=== PATIENT | male | born 1985 | race Caucasian/White ===

== ENCOUNTER 2017-06-27 13:54 | Inpatient (IN) | payer MEDICAID, OTHER ==
[~2017-06-27] VITALS: Ht 170.2 cm; Wt 85.4 kg
[~2017-06-27 13:54] MED LIST: AMOX875T20 PO; LORTA5
[2017-06-27 13:55] VITALS: BP 149/83; PULSE 98; RESP 16; TEMP 98.4; O2SAT 98
--- NOTE | 2017-06-27 14:42 | PD ---
HPI Chief Complaint: Skin Problem Time Seen by Provider: 14:33 Travel History International Travel<30 days: No Contact w/Intl Traveler<30days: No Traveled to known affect area: No History of Present Illness HPI 32 YO M presents to the ED for evaluation of bleeding, pain and swelling from wound of the left lower extremity. The patient states that he sustained the wound approximately 10 days ago. He was using a edger that shot a rock into his leg. He was seen at [facility]. At that time laceration was repaired, tetanus immunization was updated and the patient was provided prescription for Keflex. He endorses compliance with the medications but states that his symptoms have continued to worsen. Today he complains of pain, swelling, intermittent bleeding, fevers and nausea. He states he is otherwise healthy. He ate a cheeseburger and chicken sandwich ~2pm today. PFSH Past Medical History Blood Disorders: No Cancer: No Cardiovascular Problems: No Endocrine: No Gastrointestinal Disorders: No Genitourinary: No Immune Disorder: No Implanted Vascular Access Dvce: No Musculoskeletal: No Neurologic: No Psychiatric: No Reproductive: No Respiratory: No Past Surgical History Abdominal Surgery: No Cardiac Surgery: No Ear Surgery: No Endocrine Surgery: No Eye Surgery: No Genitourinary Surgery: No Gynecologic Surgery: No Neurologic Surgery: No Oral Surgery: No Pacemaker: No Thoracic Surgery: No Other Surgery: Yes Social History Alcohol Use: Yes (occ) Tobacco Use: Yes (1 ppd) Substance Use: Yes (OCC. MARAJUANA USE) Allergies-Medications (Allergen,Severity, Reaction): Coded Allergies: tramadol (Unverified Allergy, Mild, Rash, 06/27/17) Reported Meds & Prescriptions Reported Meds & Active Scripts Active Reported Amoxicillin/Clavulanate P (Amoxicillin/Clavulanate Potassium) 875 Mg Tab 875 Mg PO BID 10 Days Lortab 5/325 Tab (Hydrocodone-Acetaminophen) 1 Tab Tab 1 Tab .XX Q4-6HPRN Review of Systems Except as stated in HPI: all other systems reviewed are Neg Physical Exam Narrative GENERAL: Well-nourished, well-developed white male in no acute distress. SKIN: Focused skin assessment warm/dry. There is a 2.5 cm laceration on the lateral aspect of the left lower leg. There are [address] and a pale red fluid is emanating from the wound. There is erythema, edema of the entire left lower leg, including an old ecchymosis over the lateral aspect of the left foot. HEAD: Normocephalic. EYES: No scleral icterus. No injection or drainage. NECK: Supple, trachea midline. No JVD or lymphadenopathy. CARDIOVASCULAR: Regular rate and rhythm without murmurs, gallops, or rubs. RESPIRATORY: Breath sounds clear and equal bilaterally. No accessory muscle use. GASTROINTESTINAL: Abdomen soft, non-tender, nondistended. Active bowel sounds. MUSCULOSKELETAL: No cyanosis, or edema. FOCUSED LEFT LOWER EXTREMITY EXAM: 2+ DP pulse. Patient retains full, active range of motion of the joints of the extremity. Compartments are soft. Homans sign positive. Neurovascularly intact. BACK: Nontender without obvious deformity. No CVA tenderness. Data Data Last Documented VS Vital Signs Date Time Temp Pulse Resp B/P (MAP) Pulse Ox O2 Delivery O2 Flow Rate FiO2 06/27/17 14:37 80 18 06/27/17 13:55 98.4 149/83 (105) 98 Orders Orders Basic Metabolic Panel (Bmp) (06/27/17 14:47) Complete Blood Count With Diff (06/27/17 14:47) Blood Culture (06/27/17 14:47) Iv Access Insert/Monitor (06/27/17 14:47) Ketorolac Inj (Toradol Inj) (06/27/17 15:00) Sodium Chloride 0.9% Flush (Ns Flush) (06/27/17 15:00) Clindamycin Inj (Cleocin Inj) (06/27/17 15:00) Lactic Acid Sepsis Protocol (06/27/17 15:04) Sodium Chlorid 0.9% 500 Ml Inj (Ns 500 M (06/27/17 15:15) Acetamin-Hydrocod 325-10 Mg ([place] 10-32 (06/27/17 15:15) Ct Tib/Fib W Iv Contrast (06/27/17 ) Iohexol 350 Inj (Omnipaque 350 Inj) (06/27/17 15:28) Vancomycin Inj (Vancomycin Inj) (06/27/17 15:45) Piperacil-Tazo 4.5 Gm Premix (Zosyn 4.5 (06/27/17 15:45) Admit Order (Ed Use Only) (06/27/17 16:53) Consult Orthopedic (06/27/17 ) Invasive Rad Dept Consult (06/27/17 ) Labs Laboratory Tests Test 06/27/17 14:58 06/27/17 15:08 White Blood Count 12.3 TH/MM3 Red Blood Count 4.09 MIL/MM3 Hemoglobin 12.3 GM/DL Hematocrit 36.3 % Mean Corpuscular Volume 88.7 FL Mean Corpuscular Hemoglobin 30.1 PG Mean Corpuscular Hemoglobin Concent 34.0 % Red Cell Distribution Width 13.6 % Platelet Count 354 TH/MM3 Mean Platelet Volume 8.9 FL Neutrophils (%) (Auto) 77.5 % Lymphocytes (%) (Auto) 13.4 % Monocytes (%) (Auto) 8.2 % Eosinophils (%) (Auto) 0.6 % Basophils (%) (Auto) 0.3 % Neutrophils # (Auto) 9.6 TH/MM3 Lymphocytes # (Auto) 1.7 TH/MM3 Monocytes # (Auto) 1.0 TH/MM3 Eosinophils # (Auto) 0.1 TH/MM3 Basophils # (Auto) 0.0 TH/MM3 CBC Comment DIFF FINAL Differential Comment Blood Urea Nitrogen 13 MG/DL Creatinine 0.94 MG/DL Random Glucose 98 MG/DL Calcium Level 9.1 MG/DL Sodium Level 137 MEQ/L Potassium Level 3.9 MEQ/L Chloride Level 101 MEQ/L Carbon Dioxide Level 30.6 MEQ/L Anion Gap 5 MEQ/L Estimat Glomerular Filtration Rate 93 ML/MIN Lactic Acid Level 1.2 mmol/L MDM Medical Decision Making Medical Screen Exam Complete: Yes Emergency Medical Condition: Yes Differential Diagnosis Hematoma versus abscess versus compartment syndrome versus other Narrative Course 32 YO M presents to the ED for evaluation of bleeding, pain and swelling from wound of the left lower extremity sustained ~ 10 days ago. He was using an edger that shot a rock into his leg. He was seen at [facility] for laceration repair, tetanus immunization. He endorses compliance with Keflex prescribed at that time. Today he complains of pain, swelling, intermittent bleeding, fevers and nausea. He states he is otherwise healthy. He ate a cheeseburger and chicken sandwich ~2pm today. The patient is afebrile on presentation. Physical exam reveals a 2 cm laceration on the lateral aspect of the left lower extremity. There is surrounding warmth, erythema, edema and tenderness to palpation to just below the knee and to the ankle area. Compartments are soft. IV was established. Patient was administered 1 L normal saline, 30 mg Toradol and 900 mg clindamycin IV. CBC: WBC 12.3 with left shift. Hemoglobin 12.3. Lactic: 1.2 CMP: Unremarkable. CT tib-fib: large fluid collection in the gastroc compartment per my read, formal read pending. IV vancomycin and Zosyn was administered. Patient was administered 10 mg Lortab by mouth. Call placed to the on-call orthopedist Dr. Nolasco. He'd like IR to drain the area, plans to take the patient to the OR tomorrow. I spoke with Dr. Mane, IR, who recommends opening the wound and draining the area in the ED. Please see my procedure note for those details. Patient be admitted to the medicine service. Dr. Warren spoke with the residents who agree to accept the patient under Dr. Leahy. Please see medicine and ortho notes for disposition. Procedures Procedure Narrative INCISION AND DRAINAGE OF ABSCESS: The sutures were removed. Cultures were obtained. The wound was irrigated with approximately 500 mL's of normal saline. I&D was limited secondary to pain. Sterile dressing applied. Patient tolerated the procedure well. Elsa Stringer Jun 27, 2017 14:42
[2017-06-27] MEDS ORDERED: CLINDAMYCIN INJ 900 MG in SODIUM CHLORIDE 0.9% INJ 100 ML IV ONE (15:00)
[2017-06-27] MEDS ORDERED: SODIUM CHLORIDE 0.9% FLUSH 10 ML FLUSH IVF PRN (15:00)
[2017-06-27] MEDS ORDERED: KETOROLAC TROMETHAMINE 30 MG/ML (IVP) VIAL IVP ONE (15:00)
[2017-06-27 15:15] LABS: AUTOMATED NEUTROPHIL # 9.6 TH/MM3 (1.8-7.7); BASOPHIL % 0.3 % (0.0-2.0); EOSINOPHIL # 0.1 TH/MM3 (0-0.4); EOSINOPHIL % 0.6 % (0.0-4.0); HEMATOCRIT 36.3 % (39.0-51.0); HEMO FLAGS DIFF FINAL; LYMPH % 13.4 % (9.0-44.0); LYMPHOCYTE # 1.7 TH/MM3 (1.0-4.8); MEAN CELL VOLUME 88.7 FL (80.0-100.0); MEAN CORPUSCULAR HEMOGLOBIN 30.1 PG (27.0-34.0); MONO % 8.2 % (0.0-8.0); NEUT % 77.5 % (16.0-70.0); PLATELET COUNT 354 TH/MM3 (150-450); RED BLOOD COUNT 4.09 MIL/MM3 (4.50-5.90); RED CELL DISTRIBUTION WIDTH 13.6 % (11.6-17.2); WHITE BLOOD COUNT 12.3 TH/MM3 (4.0-11.0)
[2017-06-27] MEDS ORDERED: SODIUM CHLORID 0.9% 500 ML INJ 500 ML IV ONE (15:15)
[2017-06-27] MEDS: ACETAMINOPHEN/HYDROcodone 325 MG/10 MG TAB PO ONE (15:15)
[2017-06-27] MEDS ORDERED: IOHEXOL 350 MG/ML 10 ML VIAL (for RAD DIAG) IVCONTRAST ONE (15:28)
[2017-06-27 15:31] LABS: BICARBONATE 30.6 MEQ/L (21.0-32.0); POTASSIUM 3.9 MEQ/L (3.5-5.1)
[2017-06-27] MEDS ORDERED: PIPERACIL-TAZO 4.5 GM PREMIX 100 ML IV ONE (15:45)
[2017-06-27] MEDS ORDERED: VANCOMYCIN INJ 1,000 MG in SODIUM CHLOR 0.9% 250 ML INJ 250 ML IV ONE (15:45)
--- NOTE | 2017-06-27 16:22 | RADRPT ---
EXAM DATE/TIME: 06/27/2017 15:19 [place] COMPARISON: No previous studies available for comparison. INDICATIONS : Left lower leg swelling and pain status post left lower leg injury one week ago. IV CONTRAST: 75 cc Omnipaque 350 (iohexol) IV RADIATION DOSE: 26.97 CTDIvol (mGy) MEDICAL HISTORY : None SURGICAL HISTORY : left ankle surgery ENCOUNTER: Initial ACUITY: 1 week PAIN SCALE: 6/10 LOCATION: Left lower leg TECHNIQUE: Volumetric scanning of the tibia and fibula was performed. Using automated exposure control and adju stment of the mA and/or kV according to patient size, radiation dose was kept as low as reasonably ac hievable to obtain optimal diagnostic quality images. DICOM format image data is available maribel tung for review and comparison. FINDINGS: There is a fluid collection with crescentic-shaped cross-section in the lower lateral gastrocnemius m uscle. It measures approximately 19 mm in maximal thickness, 7.2 cm transverse and 10.5 cm proximal t o distal. It appears to be communicating with a skin defect posterolaterally, for example series 301 image 69. Otherwise, there is generalized subcutaneous edema. Patient has had previous screw fixation of medial malleolus fracture that appears remote and I don't see an associated acute complication here. No acu te bony abnormality demonstrated. CONCLUSION: Relatively large lateral gastrocnemius fluid collection as described above, could be a hematoma or ab scess in the proper clinical setting. It appears to be draining to the skin laterally. Benjamin Bucio MD on June 27, 2017 at 16:17 Board Certified Radiologist. This report was verified electronically.
--- NOTE | 2017-06-27 17:39 | HHI.HP ---
HPI Service Family Medicine Primary Care Physician No Primary Care Physician Admission Diagnosis abscess posterior left lower leg Diagnoses: Chief Complaint: LLE abscess and cellulitis International Travel<30 Days: No Contact w/Intl Traveler<30days: No Known Affected Area: No History of Present Illness Mr Auguste is a previously healthy 32 YO male who injured his Left lateral calf w/lawn equipment last Wednesday. He describes a rock hitting his calf while edging that broke the skin. He went to [facility]. He describes that they cleaned it out w/iodine and sutured it closed and gave him Keflex 500 qid antibiotics to take. After 2 days he could not bear weight or walk on his left leg and was keeping the leg elevated as instructed. He got some crutches to ambulate. Today his girlfriend unwrapped it and saw redness, swelling and bleeding that wouldn't stop, so decided to come to ED today. Pt states while elevated the leg does not hurt unless someone touches it. Pt is getting hot sweats, night sweats and chills, but has not checked for fever. Pt has no numbness or tingling associated with the injury. Pt denies CP, SOB (unless someone touches the wound), N/V/D, constipation, or DVT pain. (Rufino Santillan MD R1) Review of Systems Constitutional: COMPLAINS OF: Chills, Change in appetite, DENIES: Fever, Weight gain, Weight loss, Dizziness, Night Sweats Eyes: DENIES: Blurred vision, Diplopia, Eye pain, Double Vision Ears, nose, mouth, throat: DENIES: Tinnitus, Hearing loss, Vertigo, Throat pain , Hoarseness Respiratory: COMPLAINS OF: Shortness of breath, DENIES: Cough, Wheezing Cardiovascular: DENIES: Chest pain, Palpitations, Syncope Gastrointestinal: COMPLAINS OF: Anorexia, DENIES: Abdominal pain, Constipation , Diarrhea, Nausea, Vomiting Genitourinary: DENIES: Urgency, Hematuria, Dysuria Musculoskeletal: COMPLAINS OF: Joint pain (left knee), Back pain (previous injury), DENIES: Muscle aches, Stiffness, Neck pain Integumentary: COMPLAINS OF: Abnormal pigmentation (redness at site of injury) , Pruritus (likely from percocet), DENIES: Rash Hematologic/lymphatic: DENIES: Lymphadenopathy (Rufino Santillan MD R1) Past Family Social History Past Medical History none Past Surgical History dental extraction w/abscess Reported Medications percocet from neighbor Ibuprofen PRN (Rufino Santillan MD R1) Allergies: Coded Allergies: tramadol (Unverified Allergy, Mild, Rash, 06/27/17) Active Ordered Medications Current Medications Medications (Trade) Dose Ordered Sig/Stephanie Route Start Time Stop Time Status Last Admin (NS Flush) 2 ml UNSCH PRN IVF 06/27/17 15:00 Family History none Social History tobacco - 1 ppd x 11 yr EtOH - sometimes 2 beers per day, sometimes without Drugs - none (Rufino Santillan MD R1) Physical Exam Vital Signs Vital Signs Date Time Temp Pulse Resp B/P (MAP) Pulse Ox O2 Delivery O2 Flow Rate FiO2 06/27/17 14:37 80 18 06/27/17 13:55 98.4 98 16 149/83 (105) 98 Physical Exam GENERAL: This is a well-nourished, well-developed patient, in no apparent distress. SKIN: No rashes. Cool and dry except for erythema, swelling, warmth from dorsal left foot to just below the left knee. There is a linear open wound on left lateral calf from the I&D. There are ecchymoses behind the left knee and inferior to the left foot bilateral malleoli HEAD: Atraumatic. Normocephalic. EYES: Pupils equal round and reactive. Extraocular motions intact. No scleral icterus. No injection or drainage. ENT: Nose without bleeding, purulent drainage or septal hematoma. Throat without erythema, tonsillar hypertrophy or exudate. Uvula midline. Airway patent. NECK: Trachea midline. No lymphadenopathy. Supple, nontender, no meningeal signs. CARDIOVASCULAR: Regular rate and rhythm without murmurs, gallops, or rubs. RESPIRATORY: Clear to auscultation. Breath sounds equal bilaterally. No wheezes , rales, or rhonchi. GASTROINTESTINAL: Abdomen soft, non-tender, nondistended. No hepato-splenomegaly , or palpable masses. No guarding. Normal BS. MUSCULOSKELETAL: Extremities without clubbing, cyanosis, or edema. No joint tenderness, effusion, or edema noted. No calf tenderness. Left leg below knee as described above. NEUROLOGICAL: Awake and alert. Cranial nerves II through XII intact. Motor and sensory grossly within normal limits. Normal speech. Laboratory Laboratory Tests Test 06/27/17 14:58 06/27/17 15:08 White Blood Count 12.3 Red Blood Count 4.09 Hemoglobin 12.3 Hematocrit 36.3 Mean Corpuscular Volume 88.7 Mean Corpuscular Hemoglobin 30.1 Mean Corpuscular Hemoglobin Concent 34.0 Red Cell Distribution Width 13.6 Platelet Count 354 Mean Platelet Volume 8.9 Neutrophils (%) (Auto) 77.5 Lymphocytes (%) (Auto) 13.4 Monocytes (%) (Auto) 8.2 Eosinophils (%) (Auto) 0.6 Basophils (%) (Auto) 0.3 Neutrophils # (Auto) 9.6 Lymphocytes # (Auto) 1.7 Monocytes # (Auto) 1.0 Eosinophils # (Auto) 0.1 Basophils # (Auto) 0.0 CBC Comment DIFF FINAL Differential Comment Blood Urea Nitrogen 13 Creatinine 0.94 Random Glucose 98 Calcium Level 9.1 Sodium Level 137 Potassium Level 3.9 Chloride Level 101 Carbon Dioxide Level 30.6 Anion Gap 5 Estimat Glomerular Filtration Rate 93 Lactic Acid Level 1.2 Date/Time Source Procedure Growth Status 06/27/17 14:51 Blood Peripheral Aerobic Blood Culture Pending Received 06/27/17 14:51 Blood Peripheral Anaerobic Blood Culture Pending Received (Rufino Santillan MD R1) Result Diagram: 06/27/17 1458 06/27/17 1458 Imaging Last Impressions Lower Extremity CT 06/27/17 0000 Signed Impressions: Service Date/Time: Tuesday, June 27, 2017 15:19 - CONCLUSION: Relatively large lateral gastrocnemius fluid collection as described above, could be a hematoma or abscess in the proper clinical setting. It appears to be draining to the skin laterally. Benjamin Bucio MD (Rufino Santillan MD R1) Septic Shock Reassessment Heart: Regular rate and rhythm Lungs: Clear Skin: Cold, Dry Peripheral Pulses: Bounding Right Dorsalis Pedis Bounding Left Dorsalis Pedis Capillary Refill: <2 seconds (Rufino Santillan MD R1) Caprini VTE Risk Assessment Caprini VTE Risk Assessment: No/Low Risk (score <= 1) (Rufino Santillan MD R1) Assessment and Plan Assessment and Plan 32 YO male with left lower leg abscess 2/2 trauma and improper wound healing and associated cellulitis Code Status FULL Discussed Condition With Yamilex Leahy and Melina (Rufino Santillan MD R1) Attending Attestation Patient seen and examined. Case reviewed and discussed with the resident team. Agree with plan of care as discussed with me and documented in the resident note. He was seen in the ED on admission. he was having his wound incised and drained in the ED but the abscess was deep and needed surgery (Melany Leahy MD) Problem List: (1) Sepsis ICD Codes: A41.9 - Sepsis, unspecified organism Status: Acute Plan: Tachycardia to 98, Leukocytosis to 12.3, and cellulitis and abscess of left lower leg -Sepsis protocol bundle -IV Vancomycin 1g q12h -2L NS boluses -Lactate 1.2 (2) Cellulitis and abscess of left leg ICD Codes: L03.116 - Cellulitis of left lower limb; L02.416 - Cutaneous abscess of left lower limb Status: Acute Plan: Pt with CT showing left lower leg abscess in lateral calf with skin over the left leg below the knee with erythema, edema and warmth. -IV Vancomycin 1g q12h -Vancomycin pharmacy consult -Pain control: Torodol 15 mg q6h pain 1-5, Torodol 30 mg q6h pain 6-10, Morphine 4 mg q3h breakthru -Tylenol 650 mg q6h fever -Blood cx x2, wound cx -2L NS IVF boluses -Given 1 dose Vancomycin, Zosyn, and Clindamycin in ED (3) FEN/GI/PPx Status: Acute Plan: Diet: NPO after midnight for surgery GI: no ppx indicated DVT ppx: SCD for right leg Aline-colace and Senna for constipation (Rufino Santillan MD R1) Physician Certification 2 Midnight Certification Type: Admission for Inpatient Services Order for Inpatient Services The services are ordered in accordance with Medicare regulations or non- Medicare payer requirements, as applicable. In the case of services not specified as inpatient-only, they are appropriately provided as inpatient services in accordance with the 2-midnight benchmark. Estimated LOS (days): 2 2 days is the estimated time the patient will need to remain in the hospital, assuming treatment plan goals are met and no additional complications. Post-Hospital Plan: Home (Rufino Santillan MD R1) Rufino Santillan MD R1 Jun 27, 2017 17:39 Melany Leahy MD Jun 28, 2017 14:12
[2017-06-27] MEDS ORDERED: FAMOTIDINE 20 MG TAB PO ONE (17:45)
[2017-06-27] MEDS ORDERED: MAGNESIUM HYDROXIDE SUSP 30 ML CUP PO PRN (18:00)
[2017-06-27] MEDS ORDERED: MORPHINE SULFATE 8 MG/ML INJ IV PUSH PRN (18:00)
[2017-06-27] MEDS ORDERED: Vancomycin Consult Pharmacy 1 EA OTHER SCH (18:00)
[2017-06-27] MEDS ORDERED: SODIUM CHLORIDE 0.9% FLUSH 10 ML FLUSH IV FLUSH PRN (18:00)
[2017-06-27] MEDS ORDERED: NALOXONE HCL 0.4 MG/ML AMP IV PUSH PRN (18:00)
[2017-06-27] MEDS ORDERED: KETOROLAC TROMETHAMINE 30 MG/ML (IVP) VIAL IVP PRN ×2 (18:00)
[2017-06-27] MEDS ORDERED: ACETAMINOPHEN 325 MG TAB PO PRN (18:00)
[2017-06-27] MEDS ORDERED: SENNOSIDES 8.6 MG TAB PO PRN (18:00)
[2017-06-27] MEDS ORDERED: ONDANSETRON HCL 4 MG/2 ML VIAL IVP PRN (18:00)
[2017-06-27] MEDS: SODIUM CHLOR 0.9% 1000 ML INJ 1,000 ML IV SCH ×2 (18:15→20:56)
[2017-06-27] MEDS ORDERED: CEPH-460 PO (18:16)
[2017-06-27] MEDS ORDERED: HYDR-3516 PO (18:16)
[2017-06-27] MEDS ORDERED: SODIUM CHLOR 0.9% 1000 ML INJ 1,000 ML IV ONE (19:00)
[2017-06-27] MEDS ORDERED: VANCOMYCIN 1,500 MG/NS 500 ML IV ONE ×2 (20:00)
[2017-06-27] MEDS: SODIUM CHLORIDE 0.9% FLUSH 10 ML FLUSH IV FLUSH SCH (21:00)
[2017-06-27 22:00] VITALS: BP 127/70; PULSE 81; RESP 22; TEMP 98.3; O2SAT 96
[2017-06-27] MEDS: DOCUSATE SODIUM 50 MG/SENNA 8.6 MG TAB PO SCH (22:12)
[2017-06-28] VITALS: BP 127/60; PULSE 85; RESP 20; TEMP 97.8; O2SAT 97
[2017-06-28 07:19] LABS: AUTOMATED NEUTROPHIL # 7.5 TH/MM3 (1.8-7.7); BASOPHIL % 0.4 % (0.0-2.0); EOSINOPHIL # 0.2 TH/MM3 (0-0.4); HEMATOCRIT 32.7 % (39.0-51.0); HEMO FLAGS DIFF FINAL; LYMPH % 13.2 % (9.0-44.0); LYMPHOCYTE # 1.4 TH/MM3 (1.0-4.8); MEAN CELL VOLUME 89.5 FL (80.0-100.0); MEAN CORPUSCULAR HGB CONC 33.6 % (32.0-36.0); MONO % 12.3 % (0.0-8.0); NEUT % 72.1 % (16.0-70.0); PLATELET COUNT 293 TH/MM3 (150-450); RED BLOOD COUNT 3.65 MIL/MM3 (4.50-5.90); RED CELL DISTRIBUTION WIDTH 13.6 % (11.6-17.2); WHITE BLOOD COUNT 10.4 TH/MM3 (4.0-11.0)
[2017-06-28 07:41] LABS: BICARBONATE 25.5 MEQ/L (21.0-32.0)
[2017-06-28] MEDS: SODIUM CHLORIDE 0.9% FLUSH 10 ML FLUSH IV FLUSH SCH (07:46)
[2017-06-28] MEDS: DOCUSATE SODIUM 50 MG/SENNA 8.6 MG TAB PO SCH ×2 (07:46→20:42)
[2017-06-28 08:00] VITALS: BP 136/69; PULSE 74; RESP 20; TEMP 97.5; O2SAT 99
[2017-06-28] MEDS ORDERED: VANCOMYCIN INJ 1,000 MG in SODIUM CHLOR 0.9% 250 ML INJ 250 ML IV SCH ×2 (08:00→12:15)
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
[2017-06-28] MEDS ORDERED: ACETAMINOPHEN 1000 MG/100 ML 100 ML IV ONE (10:05)
[2017-06-28] MEDS ORDERED: GENTAMICIN SULFATE 80 MG/2 ML VIAL ONE (11:13)
[2017-06-28] MEDS ORDERED: MIDAZOLAM HCL 2 MG/2 ML VIAL IV ONE (12:00)
[2017-06-28] MEDS ORDERED: PROPOFOL 200 MG/20 ML AMP IV ONE (12:00)
[2017-06-28] MEDS ORDERED: ONDANSETRON HCL 4 MG/2 ML VIAL IV PUSH ONE (12:00)
[2017-06-28] MEDS ORDERED: LIDOCAINE HCL 1% PF 5 ML AMPULE OTHER ONE (12:00)
[2017-06-28] MEDS ORDERED: DEXAMETHASONE SOD PHOS 4 MG/ML VIAL IV ONE (12:00)
[2017-06-28] MEDS ORDERED: PERC5TAB12 PO (12:12)
[2017-06-28] MEDS ORDERED: ONDANSETRON HCL 4 MG/2 ML VIAL IVP PRN (12:15)
[2017-06-28] MEDS ORDERED: SODIUM CHLORIDE 0.9% FLUSH 5 ML FLUSH IVF PRN (12:15)
[2017-06-28] MEDS ORDERED: NALOXONE HCL 0.4 MG/ML AMP IV PRN (12:15)
[2017-06-28] MEDS ORDERED: Post-op Orders (for Pharmacy) MISC XX ONE (12:15)
[2017-06-28] MEDS ORDERED: VANCOMYCIN HCL 1000 MG VIAL ONE (12:21)
[2017-06-28] MEDS ORDERED: SODIUM CHLOR 0.9% 250 ML INJ 250 ML ONE (12:23)
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
[2017-06-28] MEDS ORDERED: DO NOT ADM ANY ANTICOAGULANT DRUGS PRN (12:55)
[2017-06-28] MEDS ORDERED: *MEPERIDINE 25 MG INJ VIAL PERIprocedural Use ONLY ONE (12:59)
[2017-06-28] MEDS ORDERED: *morphine SULFATE 8 MG/ML PERIprocedure ONLY ONE ×2 (13:15→13:33)
[2017-06-28] MEDS ORDERED: ceFAZolin 2 GM PREMIX 50 ML IV ONE (13:27)
[2017-06-28] MEDS: SODIUM CHLOR 0.9% 1000 ML INJ 1,000 ML IV SCH ×2 (13:46→20:44)
[2017-06-28] MEDS: oxyCODONE/ACETAMINOPHEN 5 MG/325 MG TAB PO PRN ×2 (14:47→20:43)
[2017-06-28] MEDS: DEXT 5%-NACL 0.45% 1000 ML INJ 1,000 ML IV SCH ×2 (14:50→20:44)
[2017-06-28 16:00] VITALS: BP 133/63; PULSE 67; RESP 19; TEMP 98; O2SAT 99
[2017-06-28] MEDS ORDERED: VANCOMYCIN INJ 1,250 MG in SODIUM CHLOR 0.9% 250 ML INJ 250 ML IV SCH (16:00)
[2017-06-28] MEDS: MORPHINE SULFATE 4 MG/ML INJ IV PUSH PRN ×2 (17:32→23:48)
[2017-06-28] MEDS: PIPERACIL-TAZO 3.375 GM PREMIX 50 ML IV SCH ×2 (17:33→23:45)
[2017-06-28 19:15] VITALS: BP 116/55; PULSE 89; RESP 18; TEMP 98.1; O2SAT 98
[2017-06-28 20:35] VITALS: O2SAT 95
[2017-06-28] MEDS: diphenhydrAMINE HCL 25 MG CAP PO PRN (20:42)
[2017-06-28] MEDS: SODIUM CHLORIDE 0.9% FLUSH 5 ML FLUSH IVF SCH (20:43)
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
[2017-06-29] VITALS (10 sets, daily range): BP systolic 119–153; BP diastolic 60–81; PULSE 65–89; RESP 16–20; TEMP 96.8–98.1; O2SAT 96–99
[2017-06-29] MEDS: PIPERACIL-TAZO 3.375 GM PREMIX 50 ML IV SCH ×4 (05:21→23:50)
[2017-06-29] MEDS: DEXT 5%-NACL 0.45% 1000 ML INJ 1,000 ML IV SCH (05:21)
[2017-06-29 08:03] LABS: HEMATOCRIT 28.6 % (39.0-51.0); MEAN CELL VOLUME 87.9 FL (80.0-100.0); MEAN CORPUSCULAR HEMOGLOBIN 30.1 PG (27.0-34.0); MEAN CORPUSCULAR HGB CONC 34.2 % (32.0-36.0); PLATELET COUNT 273 TH/MM3 (150-450); RED BLOOD COUNT 3.26 MIL/MM3 (4.50-5.90); RED CELL DISTRIBUTION WIDTH 13.2 % (11.6-17.2); REVIEW FLAG FINAL; WHITE BLOOD COUNT 14.2 TH/MM3 (4.0-11.0)
[2017-06-29] MEDS: SODIUM CHLORIDE 0.9% FLUSH 5 ML FLUSH IVF SCH ×2 (08:16→21:15)
[2017-06-29 08:25] LABS: POTASSIUM 3.9 MEQ/L (3.5-5.1)
[2017-06-29] MEDS: DOCUSATE SODIUM 50 MG/SENNA 8.6 MG TAB PO SCH ×2 (09:21→21:15)
[2017-06-29] MEDS: MULTIVITAMINS/MINERALS THERAPEUTIC TAB PO SCH (09:22)
--- NOTE | 2017-06-29 09:29 | PD.ORT.PN ---
Subjective Post Op Day #: 1 Subjective Remarks pain improving. Objective Vitals Vital Signs Date Time Temp Pulse Resp B/P (MAP) Pulse Ox O2 Delivery O2 Flow Rate FiO2 06/29/17 08:30 98.1 68 18 131/67 (88) 97 06/29/17 08:00 97.4 79 16 127/62 (83) 99 06/29/17 04:00 97.4 80 16 137/65 (89) 97 06/29/17 00:00 97.2 83 18 133/61 (85) 97 06/28/17 20:35 95 06/28/17 19:15 98.1 89 18 116/55 (75) 98 06/28/17 16:00 98.0 67 19 133/63 (86) 99 06/28/17 14:15 98.0 75 14 134/61 (85) 98 Room Air 06/28/17 14:00 64 14 138/62 (87) 98 Room Air 06/28/17 13:45 80 14 149/72 (97) 100 Nasal Cannula 2 06/28/17 13:30 82 14 136/60 (85) 100 Nasal Cannula 2 06/28/17 13:15 88 14 161/75 (103) 98 Nasal Cannula 2 06/28/17 13:00 97 14 171/81 (111) 98 Nasal Cannula 2 06/28/17 12:57 98.0 96 14 155/75 (101) 97 Nasal Cannula 2 I/O 06/28/17 06/28/17 06/28/17 06/29/17 06/29/17 06/29/17 07:00 15:00 23:00 07:00 15:00 23:00 Intake Total 835 ml 800 ml 1947 ml 100 ml Output Total 250 ml 2100 ml Balance 585 ml 800 ml 1947 ml -2000 ml Intake Oral 320 ml 0 ml 760 ml IV Total 515 ml 1187 ml 100 ml Other 800 ml Output Urine Total 250 ml 1900 ml Drainage Total 200 ml # Voids 1 4 # Bowel Movements 0 Result Diagram: 06/29/17 0551 06/29/17 0551 Objective Remarks in bed, nad wound vac intact compartments soft nvi Assessment & Plan Ortho Post Op Day #: 1 Problem List: Assessment and Plan s/p I&D LLE with application of wound vac POD#1 protected WB wound vac changes M/W/F abx per ID cultures showing gram neg rods pain control med management Riley Nava Jun 29, 2017 09:29
--- NOTE | 2017-06-29 10:54 | HHI.FPPN ---
Subjective Remarks Patient went to the OR for I&D of LLE with application of wound vac yesterday. POD#1 doing well. Patient reports that his back pain is worse than his leg pain. He reports that he is eating, drinking, going to the bathroom normally. Discussed plan of care with patient. (Saran Summers MD R2) Objective Vitals Vital Signs Date Time Temp Pulse Resp B/P (MAP) Pulse Ox O2 Delivery O2 Flow Rate FiO2 06/29/17 08:30 98.1 68 18 131/67 (88) 97 06/29/17 08:00 97.4 79 16 127/62 (83) 99 06/29/17 04:00 97.4 80 16 137/65 (89) 97 06/29/17 00:00 97.2 83 18 133/61 (85) 97 06/28/17 20:35 95 06/28/17 19:15 98.1 89 18 116/55 (75) 98 06/28/17 16:00 98.0 67 19 133/63 (86) 99 06/28/17 14:15 98.0 75 14 134/61 (85) 98 Room Air 06/28/17 14:00 64 14 138/62 (87) 98 Room Air 06/28/17 13:45 80 14 149/72 (97) 100 Nasal Cannula 2 06/28/17 13:30 82 14 136/60 (85) 100 Nasal Cannula 2 06/28/17 13:15 88 14 161/75 (103) 98 Nasal Cannula 2 06/28/17 13:00 97 14 171/81 (111) 98 Nasal Cannula 2 06/28/17 12:57 98.0 96 14 155/75 (101) 97 Nasal Cannula 2 I/O 06/28/17 06/28/17 06/28/17 06/29/17 06/29/17 06/29/17 07:00 15:00 23:00 07:00 15:00 23:00 Intake Total 835 ml 800 ml 1947 ml 100 ml Output Total 250 ml 2100 ml Balance 585 ml 800 ml 1947 ml -2000 ml Intake Oral 320 ml 0 ml 760 ml IV Total 515 ml 1187 ml 100 ml Other 800 ml Output Urine Total 250 ml 1900 ml Drainage Total 200 ml # Voids 1 4 # Bowel Movements 0 (Saran Summers MD R2) Result Diagram: 06/29/17 0551 06/29/17 0551 Imaging Last Impressions Lower Extremity CT 06/27/17 0000 Signed Impressions: Service Date/Time: Tuesday, June 27, 2017 15:19 - CONCLUSION: Relatively large lateral gastrocnemius fluid collection as described above, could be a hematoma or abscess in the proper clinical setting. It appears to be draining to the skin laterally. Benjamin Bucio MD Objective Remarks GENERAL: Well-nourished, well-developed patient in NAD. SKIN: Warm and dry. Improved erythema and ecchymoses of the left lower extremity. Wound VAC in place in the lateral aspect of left lower extremity, which has drained about 200 mL of gross blood. HEAD: Normocephalic. EYES: No scleral icterus. No injection or drainage. NECK: Supple, trachea midline. No JVD or lymphadenopathy. CARDIOVASCULAR: Regular rate and rhythm without murmurs, gallops, or rubs. RESPIRATORY: Breath sounds equal bilaterally. No accessory muscle use. GASTROINTESTINAL: Abdomen soft, non-tender, nondistended. EXTREMITIES: No cyanosis, or edema. Neurovascularly intact distal to left leg injury with good capillary refill, motor and sensation intact, 2+ pedal pulses. NEUROLOGICAL: Awake, alert, and oriented x 3. Non-focal. (Saran Summers MD R2) A/P Assessment and Plan 32 YO male with left lower leg abscess 2/2 trauma and improper wound healing and associated cellulitis Discharge Planning Pending culture and sensitivities to guide oral antibiotic prescription (Saran Summers MD R2) Attending Attestation Patient seen and examined. Case reviewed and discussed with the resident team. Agree with plan of care as discussed with me and documented in the resident note. appreciate all help of Orthopedics and ID (Melany Leahy MD) Problem List: (1) Sepsis ICD Codes: A41.9 - Sepsis, unspecified organism Status: Resolved Plan: Tachycardia to 98, Leukocytosis to 12.3, and cellulitis and abscess of left lower leg -Sepsis protocol bundle -Discontinue IV Vancomycin 1g q12h; continue Zosyn -s/p 2L NS boluses -Lactate 1.2 (2) Cellulitis and abscess of left leg ICD Codes: L03.116 - Cellulitis of left lower limb; L02.416 - Cutaneous abscess of left lower limb Status: Acute Plan: Pt with CT showing left lower leg abscess in lateral calf with skin over the left leg below the knee with erythema, edema and warmth. Pt is POD#1 s/p I& D LLE with application of wound vac. Cultures showing gram neg rods. -Infectious disease and orthopedic surgery consults appreciated Ortho: protected WB wound vac changes M/W/F ID: -Discontinue vancomycin per infectious disease -Continue Zosyn -Follow up culture and sensitivity PT: -Axillary crutches -Pain control: Toradol 15 mg q6h pain 1-5, Toradol 30 mg q6h pain 6-10, Morphine 4 mg q3h breakthrough -Medications as needed for constipation -Tylenol 650 mg q6h fever -Blood cx x2, wound cx (3) FEN/GI/PPx Status: Acute Plan: Diet: Regular basic diet GI: no ppx indicated DVT ppx: protected WB; SCD for right leg Aline-colace and Senna for constipation (Saran Summers MD R2) Problem Qualifiers (1) Sepsis: Qualified Codes: A41.9 - Sepsis, unspecified organism Saran Summers MD R2 Jun 29, 2017 10:54 Melany Leahy MD Jul 02, 2017 13:45
[2017-06-29] MEDS ORDERED: CRUTMIS35 (10:56)
[2017-06-29] MEDS: PANTOPRAZOLE SOD 20 MG DELAYED RELEASE TAB PO SCH (12:01)
[2017-06-29] MEDS ORDERED: PHARMACY ORDERED LAB ONE (15:45)
[2017-06-29] MEDS: oxyCODONE/ACETAMINOPHEN 5 MG/325 MG TAB PO PRN ×2 (17:07→21:17)
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
[2017-06-29] MEDS: diphenhydrAMINE HCL 25 MG CAP PO PRN (23:54)
[2017-06-30] VITALS: BP 134/74; PULSE 68; RESP 18; TEMP 96.8; O2SAT 99
[2017-06-30] MEDS: PIPERACIL-TAZO 3.375 GM PREMIX 50 ML IV SCH ×4 (05:21→22:33)
[2017-06-30 07:12] LABS: HEMATOCRIT 28.5 % (39.0-51.0); MEAN CELL VOLUME 88.7 FL (80.0-100.0); MEAN CORPUSCULAR HEMOGLOBIN 29.3 PG (27.0-34.0); MEAN CORPUSCULAR HGB CONC 33.1 % (32.0-36.0); PLATELET COUNT 346 TH/MM3 (150-450); RED BLOOD COUNT 3.21 MIL/MM3 (4.50-5.90); RED CELL DISTRIBUTION WIDTH 13.9 % (11.6-17.2); REVIEW FLAG FINAL; WHITE BLOOD COUNT 8.9 TH/MM3 (4.0-11.0)
[2017-06-30 07:23] LABS: BICARBONATE 26.4 MEQ/L (21.0-32.0); POTASSIUM 4.1 MEQ/L (3.5-5.1)
[2017-06-30 08:00] VITALS: BP 111/60; PULSE 66; RESP 17; TEMP 96.6; O2SAT 99
--- NOTE | 2017-06-30 08:19 | HHI.FPPN ---
Subjective Remarks MICHAELA overngiht. AFVSS overnight. Patient c/o being in a lot of pain, oob in chair. He hasn't asked for pain medication yet today. Plan for wound vac change today, continue abx per ID. (Saran Summers MD R2) Objective Vitals Vital Signs Date Time Temp Pulse Resp B/P (MAP) Pulse Ox O2 Delivery O2 Flow Rate FiO2 06/30/17 08:00 96.6 66 17 111/60 (77) 99 06/30/17 00:00 96.8 68 18 134/74 (94) 99 06/29/17 21:56 153/81 (105) 06/29/17 20:00 97.8 89 20 153/81 (105) 96 06/29/17 18:01 99 21 06/29/17 16:00 97.3 79 16 127/70 (89) 99 06/29/17 13:03 97.6 69 18 119/60 (79) 06/29/17 12:00 96.8 65 16 133/64 (87) 97 06/29/17 08:30 98.1 68 18 131/67 (88) 97 I/O 06/29/17 06/29/17 06/29/17 06/30/17 06/30/17 06/30/17 07:00 15:00 23:00 07:00 15:00 23:00 Intake Total 100 ml 720 ml 640 ml 100 ml Output Total 2100 ml 650 ml 750 ml 25 ml Balance -2000 ml 70 ml -110 ml 75 ml Intake Oral 720 ml 640 ml IV Total 100 ml 100 ml Output Urine Total 1900 ml 650 ml 700 ml Drainage Total 200 ml 50 ml 25 ml # Voids 4 # Bowel Movements 1 1 (Saran Summers MD R2) Result Diagram: 06/30/17 0540 06/30/17 0540 Imaging Last Impressions Lower Extremity CT 06/27/17 0000 Signed Impressions: Service Date/Time: Tuesday, June 27, 2017 15:19 - CONCLUSION: Relatively large lateral gastrocnemius fluid collection as described above, could be a hematoma or abscess in the proper clinical setting. It appears to be draining to the skin laterally. Benjamin Bucio MD Objective Remarks GENERAL: Well-nourished, well-developed patient holding leg and grunting in pain. SKIN: Warm and dry. Improved erythema and ecchymoses of the left lower extremity. Wound VAC in place in the lateral aspect of left lower extremity, which has drained about 200 mL of gross blood, no more since yesterday. HEAD: Normocephalic. EYES: No scleral icterus. No injection or drainage. NECK: Supple, trachea midline. No JVD or lymphadenopathy. CARDIOVASCULAR: Regular rate and rhythm without murmurs, gallops, or rubs. RESPIRATORY: Breath sounds equal bilaterally. No accessory muscle use. GASTROINTESTINAL: Abdomen soft, non-tender, nondistended. EXTREMITIES: No cyanosis, or edema. Neurovascularly intact distal to left leg injury with good capillary refill, motor and sensation intact, 2+ pedal pulses. NEUROLOGICAL: Awake, alert, and oriented x 3. Non-focal. (Saran Summers MD R2) A/P Assessment and Plan 32 YO male with left lower leg abscess 2/2 trauma and improper wound healing and associated cellulitis Discharge Planning Pending culture and sensitivities to guide oral antibiotic prescription and orthopedic surgical management (Saran Summers MD R2) Attending Attestation Patient seen and examined. Case reviewed and discussed with the resident team. Agree with plan of care as discussed with me and documented in the resident note. he is stable and improving. his wound vac is working well (Melany Leahy MD) Problem List: (1) Cellulitis and abscess of left leg ICD Codes: L03.116 - Cellulitis of left lower limb; L02.416 - Cutaneous abscess of left lower limb Status: Acute Plan: Pt with CT showing left lower leg abscess in lateral calf with skin over the left leg below the knee with erythema, edema and warmth. Pt is POD#2 s/p I& D LLE with application of wound vac. Cultures showing gram neg rods. -Infectious disease and orthopedic surgery consults appreciated Ortho: protected WB wound vac changes M/W/F (planned for today) ID: -Discontinue vancomycin per infectious disease -Continue Zosyn -Follow up culture and sensitivity PT: -Axillary crutches -Pain control: Toradol 15 mg q6h pain 1-5, Toradol 30 mg q6h pain 6-10, Morphine 4 mg q3h breakthrough -Medications as needed for constipation -Tylenol 650 mg q6h fever -Blood cx x2 NGTD, wound cx growing brewer-sensitive serratia and enterobacter (2) FEN/GI/PPx Status: Acute Plan: Diet: Regular basic diet GI: no ppx indicated DVT ppx: protected WB; SCD for right leg Aline-colace and Senna for constipation (Saran Summers MD R2) Saran Summers MD R2 Jun 30, 2017 08:19 Melany Leahy MD Jul 02, 2017 13:46
--- NOTE | 2017-06-30 08:23 | PD.ORT.PN ---
Subjective Post Op Day #: 2 Subjective Remarks L leg painful. doing ok. Objective Vitals Vital Signs Date Time Temp Pulse Resp B/P (MAP) Pulse Ox O2 Delivery O2 Flow Rate FiO2 06/30/17 08:00 96.6 66 17 111/60 (77) 99 06/30/17 00:00 96.8 68 18 134/74 (94) 99 06/29/17 21:56 153/81 (105) 06/29/17 20:00 97.8 89 20 153/81 (105) 96 06/29/17 18:01 99 21 06/29/17 16:00 97.3 79 16 127/70 (89) 99 06/29/17 13:03 97.6 69 18 119/60 (79) 06/29/17 12:00 96.8 65 16 133/64 (87) 97 06/29/17 08:30 98.1 68 18 131/67 (88) 97 I/O 06/29/17 06/29/17 06/29/17 06/30/17 06/30/17 06/30/17 07:00 15:00 23:00 07:00 15:00 23:00 Intake Total 100 ml 720 ml 640 ml 100 ml Output Total 2100 ml 650 ml 750 ml 25 ml Balance -2000 ml 70 ml -110 ml 75 ml Intake Oral 720 ml 640 ml IV Total 100 ml 100 ml Output Urine Total 1900 ml 650 ml 700 ml Drainage Total 200 ml 50 ml 25 ml # Voids 4 # Bowel Movements 1 1 Result Diagram: 06/30/17 0540 06/30/17 0540 Objective Remarks in bed, nad wound vac intact no erythema compartments soft nvi Assessment & Plan Ortho Post Op Day #: 2 Problem List: Assessment and Plan s/p I&D LLE with application of wound vac POD#2 protected WB wound vac changes M/W/F abx per ID cultures showing gram neg rods - Serratia marcescens pain control med management may consider return to OR for repeat I&D with wound closure as swelling improves Riley Nava Jun 30, 2017 08:23
[2017-06-30] MEDS: SODIUM CHLORIDE 0.9% FLUSH 5 ML FLUSH IVF SCH ×2 (08:50→21:00)
[2017-06-30] MEDS: PANTOPRAZOLE SOD 20 MG DELAYED RELEASE TAB PO SCH (08:50)
[2017-06-30] MEDS: MULTIVITAMINS/MINERALS THERAPEUTIC TAB PO SCH (08:50)
[2017-06-30] MEDS: DOCUSATE SODIUM 50 MG/SENNA 8.6 MG TAB PO SCH ×2 (08:50→21:00)
[2017-06-30] MEDS: oxyCODONE/ACETAMINOPHEN 5 MG/325 MG TAB PO PRN ×3 (11:05→23:54)
[2017-06-30 12:00] VITALS: BP 122/77; PULSE 72; RESP 19; TEMP 97.6; O2SAT 98
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
[2017-06-30 16:00] VITALS: BP 128/73; PULSE 63; RESP 17; TEMP 98.2; O2SAT 99
[2017-06-30] MEDS: MORPHINE SULFATE 4 MG/ML INJ IV PUSH PRN (17:02)
[2017-06-30 20:00] VITALS: BP 136/81; PULSE 68; RESP 20; TEMP 96.8; O2SAT 100
[2017-06-30] MEDS: diphenhydrAMINE HCL 25 MG CAP PO PRN (22:29)
[2017-07-01] VITALS: BP 122/69; PULSE 73; RESP 20; TEMP 96.1; O2SAT 99
[2017-07-01 05:33] LABS: HEMATOCRIT 32.8 % (39.0-51.0); MEAN CELL VOLUME 88.8 FL (80.0-100.0); MEAN CORPUSCULAR HEMOGLOBIN 29.1 PG (27.0-34.0); MEAN CORPUSCULAR HGB CONC 32.8 % (32.0-36.0); PLATELET COUNT 429 TH/MM3 (150-450); RED BLOOD COUNT 3.69 MIL/MM3 (4.50-5.90); REVIEW FLAG FINAL; WHITE BLOOD COUNT 10.1 TH/MM3 (4.0-11.0)
[2017-07-01] MEDS: PIPERACIL-TAZO 3.375 GM PREMIX 50 ML IV SCH ×4 (05:55→23:00)
[2017-07-01] MEDS: oxyCODONE/ACETAMINOPHEN 5 MG/325 MG TAB PO PRN ×4 (05:57→23:06)
[2017-07-01 06:04] LABS: BICARBONATE 27.8 MEQ/L (21.0-32.0); POTASSIUM 4.7 MEQ/L (3.5-5.1)
[2017-07-01 08:00] VITALS: BP 127/79; PULSE 65; RESP 14; TEMP 96.2; O2SAT 98
--- NOTE | 2017-07-01 08:10 | PD.ORT.PN ---
Subjective Post Op Day #: 3 Subjective Remarks L leg painful. doing ok. vac changed yesterday. Objective Vitals Vital Signs Date Time Temp Pulse Resp B/P (MAP) Pulse Ox O2 Delivery O2 Flow Rate FiO2 07/01/17 00:00 96.1 73 20 122/69 (86) 99 06/30/17 20:00 96.8 68 20 136/81 (99) 100 06/30/17 16:00 98.2 63 17 128/73 (91) 99 06/30/17 12:00 97.6 72 19 122/77 (92) 98 06/30/17 11:44 21 I/O 06/30/17 06/30/17 06/30/17 07/01/17 07/01/17 07/01/17 07:00 15:00 23:00 07:00 15:00 23:00 Intake Total 100 ml 870 ml Output Total 25 ml 975 ml 200 ml Balance 75 ml -105 ml -200 ml Intake Oral 720 ml IV Total 100 ml 150 ml Output Urine Total 950 ml 200 ml Drainage Total 25 ml 25 ml # Bowel Movements 2 Result Diagram: 07/01/17 0453 07/01/17 0453 Objective Remarks in bed, nad wound vac intact no erythema compartments soft swelling improving nvi Assessment & Plan Ortho Post Op Day #: 3 Problem List: Assessment and Plan s/p I&D LLE with application of wound vac POD#3 protected WB wound vac changes M/W/F abx per ID cultures showing gram neg rods - Serratia marcescens pain control med management may consider return to OR for repeat I&D with wound closure as swelling improves Riley Nava Jul 01, 2017 08:10
[2017-07-01] MEDS: DOCUSATE SODIUM 50 MG/SENNA 8.6 MG TAB PO SCH ×2 (09:00→23:05)
[2017-07-01] MEDS: MULTIVITAMINS/MINERALS THERAPEUTIC TAB PO SCH (09:01)
[2017-07-01] MEDS: SODIUM CHLORIDE 0.9% FLUSH 5 ML FLUSH IVF SCH ×2 (09:03→21:00)
[2017-07-01] MEDS: PANTOPRAZOLE SOD 20 MG DELAYED RELEASE TAB PO SCH (09:03)
--- NOTE | 2017-07-01 09:50 | HHI.FPPN ---
Subjective Remarks No acute events overnight. Afebrile and vital signs stable overnight. Patient reports increased pain after wound VAC changed yesterday. He reports that this morning is the first time he is putting pressure on it. He denies any fever, chills. He reports decreased swelling. He reports that range of motion is limited by pain. However he has full motor and sensation distal to the injury. Patient reports that he is eating, drinking, the bathroom, walking. (Saran Summers MD R2) Objective Vitals Vital Signs Date Time Temp Pulse Resp B/P (MAP) Pulse Ox O2 Delivery O2 Flow Rate FiO2 07/01/17 00:00 96.1 73 20 122/69 (86) 99 06/30/17 20:00 96.8 68 20 136/81 (99) 100 06/30/17 16:00 98.2 63 17 128/73 (91) 99 06/30/17 12:00 97.6 72 19 122/77 (92) 98 06/30/17 11:44 21 I/O 06/30/17 06/30/17 06/30/17 07/01/17 07/01/17 07/01/17 07:00 15:00 23:00 07:00 15:00 23:00 Intake Total 100 ml 870 ml Output Total 25 ml 975 ml 200 ml Balance 75 ml -105 ml -200 ml Intake Oral 720 ml IV Total 100 ml 150 ml Output Urine Total 950 ml 200 ml Drainage Total 25 ml 25 ml # Bowel Movements 2 (Saran Summers MD R2) Result Diagram: 07/01/17 0453 07/01/17 0453 Imaging Last Impressions Lower Extremity CT 06/27/17 0000 Signed Impressions: Service Date/Time: Tuesday, June 27, 2017 15:19 - CONCLUSION: Relatively large lateral gastrocnemius fluid collection as described above, could be a hematoma or abscess in the proper clinical setting. It appears to be draining to the skin laterally. Benjamin Bucio MD Objective Remarks GENERAL: Well-nourished, well-developed patient holding leg and gradually trying to put weight on it. SKIN: Warm and dry. Almost no erythema or ecchymoses of the left lower extremity. Wound VAC in place in the lateral aspect of left lower extremity, which has drained almost 350 mL of gross blood; had around 300ml since yesterday 's wound vac change. Patient took a picture of his open leg with a wound VAC was being changed: Muscle tissue appears normal and healthy. HEAD: Normocephalic. EYES: No scleral icterus. No injection or drainage. NECK: Supple, trachea midline. No JVD or lymphadenopathy. CARDIOVASCULAR: Regular rate and rhythm without murmurs, gallops, or rubs. RESPIRATORY: Breath sounds equal bilaterally. No accessory muscle use. GASTROINTESTINAL: Abdomen soft, non-tender, nondistended. EXTREMITIES: No cyanosis, or edema. Neurovascularly intact distal to left leg injury with good capillary refill, motor and sensation intact, 2+ pedal pulses. NEUROLOGICAL: Awake, alert, and oriented x 3. Non-focal. (Saran Summers MD R2) A/P Assessment and Plan 32 YO male with left lower leg abscess 2/2 trauma and associated cellulitis Discharge Planning Pending transition from IV to PO abx per ID and orthopedic surgical management: ID: Continue piperacillin/tazobactam. Will consider switch to PO antibiotic after wound closure. Ortho: may consider return to OR for repeat I&D with wound closure as swelling improves (Saran Summers MD R2) Attending Attestation Patient seen and examined. Case reviewed and discussed with the resident team. Agree with plan of care as discussed with me and documented in the resident note. per his nurse, he will be going back to the OR and may have his wound closed tomorrow (Melany Leahy MD) Problem List: (1) Cellulitis and abscess of left leg ICD Codes: L03.116 - Cellulitis of left lower limb; L02.416 - Cutaneous abscess of left lower limb Status: Acute Plan: Pt with CT showing left lower leg abscess in lateral calf with skin over the left leg below the knee with erythema, edema and warmth. Pt is POD#3 s/p I& D LLE with application of wound vac. Cultures showing pansensitive Serratia and Enterobacter. -Infectious disease and orthopedic surgery consults appreciated Ortho: may consider return to OR for repeat I&D with wound closure as swelling improves protected WB wound vac changes M/W/F ID: Continue piperacillin/tazobactam. Will consider switch to PO antibiotic after wound closure. PT: Axillary crutches -Pain control: Toradol 15 mg q6h pain 1-5, Toradol 30 mg q6h pain 6-10, Morphine 4 mg q3h breakthrough -Medications as needed for constipation -Tylenol 650 mg q6h fever -Blood cx x2 NGTD, wound cx growing brewer-sensitive Serratia and Enterobacter (2) FEN/GI/PPx Status: Acute Plan: Diet: Regular basic diet GI: no ppx indicated DVT ppx: protected WB; SCD for right leg; holding chemical prophylaxis because patient may be taken back to OR Aline-colace and Senna for constipation (Saran Summers MD R2) Saran Summers MD R2 Jul 01, 2017 09:50 Melany Leahy MD Jul 02, 2017 13:47
[2017-07-01 10:17] VITALS: O2SAT 99
[2017-07-01] MEDS: diphenhydrAMINE HCL 25 MG CAP PO PRN (11:52)
[2017-07-01 12:00] VITALS: BP 131/66; PULSE 68; RESP 14; TEMP 97.7; O2SAT 98
[2017-07-01 16:00] VITALS: BP 132/77; PULSE 77; RESP 17; TEMP 98.7; O2SAT 97
[2017-07-01 20:31] VITALS: BP 134/75; PULSE 73; RESP 16; TEMP 96.6; O2SAT 97
[2017-07-02] VITALS (8 sets, daily range): BP systolic 118–147; BP diastolic 64–81; PULSE 50–90; RESP 12–20; TEMP 95.9–97.3; O2SAT 96–100
[2017-07-02] MEDS ORDERED: CHLORHEXIDINE GLUCONATE 2 % 1 PACK (2 CLOTHS) TOPICAL PRN (04:00)
[2017-07-02] MEDS ORDERED: LACTATED RINGER'S 1000 ML IV PRN (04:00)
[2017-07-02] MEDS ORDERED: POVIDONE IODINE 5% (ANTISEPSIS KIT) 4 APPLICATIONS EACH NARE PRN (04:00)
[2017-07-02] MEDS: PIPERACIL-TAZO 3.375 GM PREMIX 50 ML IV SCH ×4 (06:49→23:16)
[2017-07-02] MEDS: SODIUM CHLORIDE 0.9% FLUSH 5 ML FLUSH IVF SCH ×2 (07:30→20:36)
[2017-07-02] MEDS ORDERED: ACETAMINOPHEN 1000 MG/100 ML 100 ML IV ONE (09:09)
[2017-07-02] MEDS ORDERED: FAMOTIDINE 20 MG/2 ML VIAL ONE (10:01)
[2017-07-02] MEDS ORDERED: DO NOT ADM ANY ANTICOAGULANT DRUGS PRN (11:17)
--- NOTE | 2017-07-02 11:20 | PD.ORT.PN ---
Objective Vitals Vital Signs Date Time Temp Pulse Resp B/P (MAP) Pulse Ox O2 Delivery O2 Flow Rate FiO2 07/02/17 08:00 95.9 70 16 147/81 (103) 100 07/02/17 04:00 96.3 50 18 118/64 (82) 98 07/02/17 00:39 18 07/02/17 00:00 97.2 69 20 142/69 (93) 99 07/01/17 20:31 96.6 73 16 134/75 (94) 97 07/01/17 16:00 98.7 77 17 132/77 (95) 97 07/01/17 12:00 97.7 68 14 131/66 (87) 98 I/O 07/01/17 07/01/17 07/01/17 07/02/17 07/02/17 07/02/17 07:00 15:00 23:00 07:00 15:00 23:00 Intake Total 50 ml 2310 ml 680 ml 600 ml Output Total 200 ml 20 ml 400 ml 3010 ml Balance -200 ml 50 ml 2290 ml 280 ml -2410 ml Intake Oral 2160 ml 680 ml IV Total 50 ml 150 ml 600 ml Output Urine Total 200 ml 400 ml Drainage Total 20 ml Estimated Blood Loss 10 ml Other 3000 ml # Voids 6 2 # Bowel Movements 1 0 Result Diagram: 07/01/17 0453 07/01/17 045 Assessment & Plan Assessment and Plan s/p repeat I&D LLE with wound closure POD#0 protected WB daily dressing changes abx per ID cultures showing gram neg rods - Serratia marcescens pain control med management ice and elevation f/up dr. smith 2 weeks Riley Nava Jul 02, 2017 11:20
[2017-07-02] MEDS ORDERED: *MEPERIDINE 25 MG INJ VIAL PERIprocedural Use ONLY ONE (11:23)
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
[2017-07-02] MEDS ORDERED: *morphine SULFATE 8 MG/ML PERIprocedure ONLY ONE (11:33)
[2017-07-02] MEDS ORDERED: LIDOCAINE HCL 1% PF 5 ML AMPULE OTHER ONE (12:00)
[2017-07-02] MEDS ORDERED: PROPOFOL 200 MG/20 ML AMP IV ONE (12:00)
[2017-07-02] MEDS ORDERED: MIDAZOLAM HCL 2 MG/2 ML VIAL IV ONE (12:00)
[2017-07-02] MEDS ORDERED: DEXAMETHASONE SOD PHOS 4 MG/ML VIAL IV ONE (12:00)
[2017-07-02] MEDS ORDERED: ONDANSETRON HCL 4 MG/2 ML VIAL IV PUSH ONE (12:00)
[2017-07-02] MEDS ORDERED: GENTAMICIN SULFATE 80 MG/2 ML VIAL IRRIGATION ONE (12:00)
[2017-07-02] MEDS ORDERED: KETOROLAC TROMETHAMINE 30 MG/ML (IVP) VIAL IV PUSH ONE (12:00)
[2017-07-02] MEDS: MULTIVITAMINS/MINERALS THERAPEUTIC TAB PO SCH (13:01)
[2017-07-02] MEDS: DOCUSATE SODIUM 50 MG/SENNA 8.6 MG TAB PO SCH ×2 (13:02→20:36)
[2017-07-02] MEDS: PANTOPRAZOLE SOD 20 MG DELAYED RELEASE TAB PO SCH (13:02)
[2017-07-02] MEDS: oxyCODONE/ACETAMINOPHEN 5 MG/325 MG TAB PO PRN ×2 (13:10→20:36)
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
[2017-07-02] MEDS ORDERED: WALKER GLIDE WH1 MI1 (16:58)
[2017-07-02] MEDS: diphenhydrAMINE HCL 25 MG CAP PO PRN (20:36)
[2017-07-03] VITALS: BP 135/71; PULSE 78; RESP 18; O2SAT 98
[2017-07-03 04:00] VITALS: BP 125/63; PULSE 65; RESP 18; TEMP 96.8; O2SAT 98
[2017-07-03] MEDS: PIPERACIL-TAZO 3.375 GM PREMIX 50 ML IV SCH ×2 (04:47→11:27)
[2017-07-03] MEDS: oxyCODONE/ACETAMINOPHEN 5 MG/325 MG TAB PO PRN (04:47)
[2017-07-03 06:57] LABS: BASOPHIL % 0.2 % (0.0-2.0); EOSINOPHIL # 0.1 TH/MM3 (0-0.4); EOSINOPHIL % 0.8 % (0.0-4.0); HEMATOCRIT 33.3 % (39.0-51.0); HEMO FLAGS DIFF FINAL; LYMPH % 13.4 % (9.0-44.0); LYMPHOCYTE # 2.2 TH/MM3 (1.0-4.8); MEAN CORPUSCULAR HEMOGLOBIN 28.7 PG (27.0-34.0); MEAN CORPUSCULAR HGB CONC 32.6 % (32.0-36.0); MONO % 6.5 % (0.0-8.0); NEUT % 79.1 % (16.0-70.0); PLATELET COUNT 407 TH/MM3 (150-450); RED BLOOD COUNT 3.78 MIL/MM3 (4.50-5.90); RED CELL DISTRIBUTION WIDTH 13.7 % (11.6-17.2); WHITE BLOOD COUNT 16.4 TH/MM3 (4.0-11.0)
[2017-07-03 08:00] VITALS: BP 124/59; PULSE 87; RESP 16; TEMP 97.1; O2SAT 99
[2017-07-03 08:11] VITALS: O2SAT 96
[2017-07-03] MEDS: SODIUM CHLORIDE 0.9% FLUSH 5 ML FLUSH IVF SCH (09:00)
[2017-07-03] MEDS: DOCUSATE SODIUM 50 MG/SENNA 8.6 MG TAB PO SCH (09:00)
[2017-07-03] MEDS ORDERED: CRUTMIS35 (10:04)
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
[2017-07-03] MEDS ORDERED: CIPR-9 PO (10:07)
--- NOTE | 2017-07-03 10:08 | HHI.DCPOC ---
Discharge Care Plan Diagnosis: (1) Cellulitis and abscess of left leg Goals to Promote Your Health * To prevent worsening of your condition and complications, please take your antibiotic medication as prescribed. * To maintain your health at the optimal level, please follow up with a doctor. Directions to Meet Your Goals Take your medications as prescribed Follow your dietary instruction Follow activity as directed Keep your appointments as scheduled Take your immunizations and boosters as scheduled If your symptoms worsen call your PCP, if no PCP go to Urgent Care Center or Emergency Room Smoking is Dangerous to Your Health. Avoid second hand smoke Call the 24-hour hour crisis hotline for domestic abuse at Saran Summers MD R2 Jul 03, 2017 10:08
[2017-07-03] MEDS: PANTOPRAZOLE SOD 20 MG DELAYED RELEASE TAB PO SCH (11:26)
[2017-07-03] MEDS: MULTIVITAMINS/MINERALS THERAPEUTIC TAB PO SCH (11:26)
--- NOTE | 2017-07-03 13:35 | PD.ORT.PN ---
Subjective Subjective Remarks doing well Objective Vitals Vital Signs Date Time Temp Pulse Resp B/P (MAP) Pulse Ox O2 Delivery O2 Flow Rate FiO2 07/03/17 08:11 96 21 07/03/17 08:00 97.1 87 16 124/59 (80) 99 07/03/17 04:00 96.8 65 18 125/63 (83) 98 07/03/17 00:00 78 18 135/71 (92) 98 07/02/17 20:00 97.3 90 18 133/71 (91) 96 07/02/17 18:03 97 21 07/02/17 16:00 97.1 72 17 135/68 (90) 97 07/02/17 13:50 96 I/O 07/02/17 07/02/17 07/02/17 07/03/17 07/03/17 07/03/17 07:00 15:00 23:00 07:00 15:00 23:00 Intake Total 680 ml 600 ml 2020 ml 100 ml Output Total 400 ml 3010 ml 1425 ml Balance 280 ml -2410 ml 595 ml 100 ml Intake Oral 680 ml 1920 ml IV Total 600 ml 100 ml 100 ml Output Urine Total 400 ml 1425 ml Estimated Blood Loss 10 ml Other 3000 ml # Voids 2 2 # Bowel Movements 0 2 Result Diagram: 07/03/17 0530 07/01/17 0453 Objective Remarks Left leg: pt showed me a picture of the incision which looked very good with no signs of infection (just changed dressing with nurse) Assessment & Plan Assessment and Plan POD #1 s/p repeat I&D LLE with wound closure protected WB daily dressing changes abx per ID cultures showing gram neg rods - Serratia marcescens pain control med management ice and elevation D/C home today f/up dr. smith 2 weeks Bert Alcantar MD Jul 03, 2017 13:35
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
== END 2017-07-03 14:07 | disposition home or self-care (01) | DRG 854 ==
LOC: NEPE 13:54 → NEDA 17:01 → N07B 21:21
PROVIDERS: ADMIT Family Medicine; ATTEND Family Medicine
PROC: 0H9LXZX Drainage of Left Lower Leg Skin, External Approach, Diagnostic (ICD-10-PCS; 2017-06-27)
PROC: 0JBP0ZZ Excision of Left Lower Leg Subcutaneous Tissue and Fascia, Open Approach (ICD-10-PCS; 2017-06-28)
PROC: 0KBT0ZZ Excision of Left Lower Leg Muscle, Open Approach (ICD-10-PCS; principal; 2017-06-28 11:38)
PROC: 0KBT0ZZ Excision of Left Lower Leg Muscle, Open Approach (ICD-10-PCS; 2017-07-02)
PROC: 0JBP0ZZ Excision of Left Lower Leg Subcutaneous Tissue and Fascia, Open Approach (ICD-10-PCS; 2017-07-02)
DX: A41.9 Sepsis, unspecified organism (principal); L02.416 Cutaneous abscess of left lower limb; L03.116 Cellulitis of left lower limb; B96.89 Other specified bacterial agents as the cause of diseases classified elsewhere; B96.20 Unspecified Escherichia coli [E. coli] as the cause of diseases classified elsewhere; F17.210 Nicotine dependence, cigarettes, uncomplicated; K59.00 Constipation, unspecified; W20.8XXA Other cause of strike by thrown, projected or falling object, initial encounter; Y92.89 Other specified places as the place of occurrence of the external cause
CPT/HCPCS: 10060; 73701; 80048; 83605; 85025; 85027; 87040; 87070; 87077; 87186; 87205; 94150; 96365; 96366; 96368; 96375; J0131; J0690; J1100; J1580; J1885; J2175; J2250; J2270; J2405; J2543; J3010; J3370; J7030; J7040; J7050; Q9967